=== PATIENT | female | born 1955 | race Asian ===

== ENCOUNTER 2018-05-25 19:08 | Emergency (ER) | payer OTHER, SELFPAY ==
[2018-05-25 19:13] VITALS: BP 158/91; PULSE 64; RESP 14; TEMP 36.2; O2SAT 100; BMI 22.4
--- NOTE | 2018-05-25 20:17 | DI.RAD.S_ITS ---
PROCEDURE: XR CHEST 2V INDICATIONS: chest pain / dizzy TECHNIQUE: 2 views of the chest were acquired. COMPARISON: None. FINDINGS: Surgical changes and devices: Clips are present overlying the neck. Lungs and pleura: Lungs are clear. No pleural effusions or pneumothorax. Mediastinum: Mediastinal contours are normal. Heart size is normal. Bones and chest wall: No suspicious bony abnormalities. Soft tissues appear unremarkable. IMPRESSION: No acute pulmonary process. Dictated by: Tamela Swift M.D. on 05/25/2018 at 20:38 Approved by: Tamela Swift M.D. on 05/25/2018 at 20:38
--- NOTE | 2018-05-25 20:27 | PC.NURSE ---
pt reports similar episode last year with diag of vertigo. Also c/o a month of intermittent substernal chest pain, denies cp today, denies pain/discomfort/dizziness or other sx at time of exam, neuro exam unremarkable, NSR on 12 lead, lungs clear/equal, no periph edema noted
[2018-05-25 20:31] LABS: Add Manual Diff / Slide Review NO; Basophils Absolute Auto 100 /uL (0-100); Basophils Percent Auto 0.8 % (0-2); Eosinophils Absolute Auto 0 /uL (0-450); Eosinophils Percent Auto 0.5 % (2-4); Hematocrit 43.9 % (36-46); Hemoglobin 14.6 g/dL (12.0-16.0); Lymphocytes Absolute Auto 1900 /uL (1100-4500); Lymphocytes Percent Auto 30.6 % (25-40); Mean Corpuscular HGB Conc 33.3 % (30-36); Mean Corpuscular Hemoglobin 30.1 PG (26-34); Mean Corpuscular Volume 90.2 fL (80-100); Monocytes Absolute Auto 300 /uL (0-900); Monocytes Percent Auto 4.7 % (3-14); Neutrophils Absolute Auto 4000 /uL (1500-7000); Neutrophils Percent Auto 63.4 % (50-75); Platelet Count 216 X10^3/uL (150-400); Red Blood Cell Count 4.87 X10^6/uL (4.0-5.2); Red Cell Distribution Width 13.6 % (11.6-14.8); White Blood Cell Count 6.3 X10^3/uL (4.5-11.0)
[2018-05-25] MEDS: ONDANSETRON 4 MG/2 ML INJ IV (20:34)
[2018-05-25] MEDS: MECLIZINE HCL 12.5 MG TABLET 25 MG PO (20:34)
[2018-05-25] MEDS: SODIUM CHLORIDE 0.9% 1,000 ML 150 ML IV (20:35)
[2018-05-25 20:42] LABS: BUN Creatinine Ratio 24.3 (6-22); Blood Urea Nitrogen 17 mg/dL (7-17); Calcium 9.3 mg/dL (8.4-10.2); Carbon Dioxide 24 mmol/L (22-32); Chloride 105 mmol/L (98-107); Estimated Glomerular Filt Rate > 60.0 mL/min (>60); Glucose 97 mg/dL (80-110); HEMOLYSIS 15 (0-50); Potassium 3.7 mmol/L (3.4-5.1); Sodium 140 mmol/L (137-145)
[2018-05-25 20:58] LABS: D Dimer < 200 ng/mL (<230); Troponin I < 0.012 ng/mL (0.01-0.034)
[2018-05-25 21:37] VITALS: BP 143/81; BP 152/90; BP 158/88; PULSE 52; PULSE 56
--- NOTE | 2018-05-25 21:43 | ED_ITS ---
HPI - Dizziness General Chief Complaint: Dizziness Stated Complaint: dizziness Time Seen by Provider: 05/25/18 19:34 Source: patient Mode of arrival: ambulatory History of Present Illness HPI Narrative: 62-year-old female, nonsmoker with history of hypothyroid presents with a chief complaint of an episode of dizziness earlier today. She states that it probably got worse when she moved her head but was mild at worst. She denies any recent illness including runny nose, nasal congestion, sneeze, cough or sore throat. She has had no fever or chills. She denies nausea , vomiting or diarrhea currently but was nauseated when her dizziness was intense earlier. She denies blurred vision or trouble with speech. She has no focal neurologic findings. She does state that she has had chest pain off and on for the past few months but not currently MD complaint: dizziness Timing: gradual onset Description: sense of movement and lightheadedness History of similar episodes: No History of trauma: No Severity: moderate Relieving factors: remaining still Exacerbating factors: movement Related Data Home Medications Medication Instructions Recorded Confirmed levothyroxine 88 mcg PO DAILY 05/25/18 05/25/18 Previous Rx's Medication Instructions Recorded meclizine 25 mg PO BID-TID PRN #14 tab 05/25/18 ondansetron 4 mg PO TID-QID PRN #10 tab 05/25/18 Allergies Allergy/AdvReac Type Severity Reaction Status Date / Time No Known Drug Allergies Allergy Verified 05/25/18 19:17 Review of Systems Constitutional Denies chills, Denies fever(s), Denies lethargy and Denies weakness Eyes Denies change in vision, Denies eye discharge, Denies irritation and Denies loss of vision ENT Ears, Nose, Mouth, and Throat: Denies change in voice, Denies neck pain and Denies sore throat Cardiovascular Denies chest pain, Denies irregular heart rhythm, Denies lightheadedness, Denies palpitations, Denies dyspnea, Denies dyspnea on exertion and Denies orthopnea Respiratory Denies cough, Denies dyspnea, Denies dyspnea on exertion and Denies wheezing Gastrointestinal Gastrointestinal: Denies abdominal pain, Denies change in bowel habits, Denies diarrhea, Denies nausea and Denies vomiting Genitourinary Denies hematuria, Denies flank pain, Denies urinary incontinence and Denies urinary urgency Musculoskeletal Denies neck pain Integumentary/Breasts Denies pruritus, Denies erythema, Denies rash and Denies wounds Neurologic Denies confusion, Denies loss of vision and Denies weakness Psychiatric Denies anxiety, Denies confusion, Denies depression, Denies homicidal ideation and Denies suicidal ideation Endocrine Denies palpitations Hematologic/Lymphatic Denies easy bruising Allergic/Immunologic Denies wheezing [facility] Social History Smoking Status: Current every day smoker Exam Narrative Exam Narrative: GENERAL: This is a well-nourished, well-developed patient, in mild distress. HEAD: Atraumatic. Normocephalic. No temporal or scalp tenderness. EYES: Pupils equal round and reactive. Extraocular motions intact. No scleral icterus. No injection or drainage. ENT: Nose without bleeding, purulent drainage or septal hematoma. Throat without erythema, tonsillar hypertrophy or exudate. Uvula midline. Airway patent. NECK: Trachea midline. No JVD or lymphadenopathy. Supple, nontender, no meningeal signs. CARDIOVASCULAR: Regular rate and rhythm without murmurs, gallops, or rubs. RESPIRATORY: Clear to auscultation. Breath sounds equal bilaterally. No wheezes , rales, or rhonchi. GASTROINTESTINAL: Abdomen soft, non-tender, nondistended. No hepato-splenomegaly , or palpable masses. No guarding. EXTREMITIES: No clubbing, cyanosis, or edema. No joint tenderness, effusion, or edema noted. BACK: Nontender without deformity or crepitance. No flank tenderness. NEURO: AOx3. SKIN: No rash or erythema. NIH Stroke Scale 1a. LOC: Patient is alert and keenly responsive (0) 1b. LOC Questions: Patient answers both LOC questions accurately (0) 1c. LOC Commands: Patient performs both tasks correctly (0) 2. Best Gaze: Normal (0) 3. Visual: No visual loss (0) 4. Facial palsy: Normal symmetrical movements (0) 5. Motor arm: No drift (0) 6. Motor leg: No drift (0) 7. Limb ataxia: Absent (0) 8. Sensory: Normal (0) 9. Best language: No aphasia; normal (0) 10. Dysarthria: Normal (0) 11. Extinction and inattention: No abnormality (0) NIHSS: 0 Initial Vital Signs Initial Vital Signs: Vital Signs Temperature 97.2 F L 05/25/18 19:13 Pulse Rate 64 05/25/18 19:13 Respiratory Rate 14 05/25/18 19:13 Blood Pressure 158/91 H 05/25/18 19:13 Pulse Oximetry 100 05/25/18 19:13 Course Orders Ordered: Discontinued Medications Sodium Chloride (Normal Saline 0.9%) 1,000 mls @ 150 mls/hr IV CONT ROGER Last Infusion: 05/25/18 21:54 Dose: 0 mls/hr Admin: 05/25/18 20:35 Dose: 150 mls/hr Meclizine HCl (Antivert) 25 mg PO NOW ONE Stop: 05/25/18 20:17 Last Admin: 05/25/18 20:34 Dose: 25 mg Ondansetron HCl (Zofran) 4 mg IV NOW ONE Stop: 05/25/18 20:17 Last Admin: 05/25/18 20:34 Dose: 4 mg Vital Signs - 8 hr 05/25/18 19:13 05/25/18 21:37 Temperature 97.2 F L Pulse Rate 64 Pulse Rate [Orthostatic Lying] 52 L Pulse Rate [Orthostatic Sitting] 56 L Pulse Rate [Orthostatic Standing] 56 L Respiratory Rate 14 Blood Pressure 158/91 H Blood Pressure [Orthostatic Lying] 143/81 H Blood Pressure [Orthostatic Sitting] 158/88 H Blood Pressure [Orthostatic Standing] 152/90 H Pulse Oximetry 100 MDM - Dizziness Lab Data Result diagrams: 05/25/18 20:25 05/25/18 20:25 Lab Results 05/25/18 05/25/18 05/25/18 Range/Units 20:25 20:25 20:25 WBC 6.3 (4.5-11.0) X10^3/uL RBC 4.87 (4.0-5.2) X10^6/uL Hgb 14.6 (12.0-16.0) g/dL Hct 43.9 (36-46) % MCV 90.2 (80-100) fL MCH 30.1 (26-34) PG MCHC 33.3 (30-36) % RDW 13.6 (11.6-14.8) % Plt Count 216 (150-400) X10^3/uL Neut % (Auto) 63.4 (50-75) % Lymph % (Auto) 30.6 (25-40) % [place] % (Auto) 4.7 (3-14) % Eos % (Auto) 0.5 L (2-4) % Baso % (Auto) 0.8 (0-2) % Neut # (Auto) 4000 (5565-2937) /uL Lymph # (Auto) 1900 (3958-5411) /uL [place] # (Auto) 300 (0-900) /uL Eos # (Auto) 0 (0-450) /uL Baso # (Auto) 100 (0-100) /uL D-Dimer < 200 (<230) ng/mL Sodium 140 (137-145) mmol/L Potassium 3.7 (3.4-5.1) mmol/L Chloride 105 (98-107) mmol/L Carbon Dioxide 24 (22-32) mmol/L BUN 17 (7-17) mg/dL Creatinine 0.70 (0.52-1.04) mg/dL Estimated GFR > 60.0 (>60) mL/min BUN/Creatinine Ratio 24.3 H (6-22) Glucose 97 (80-110) mg/dL Calcium 9.3 (8.4-10.2) mg/dL Troponin I < 0.012 (0.01-0.034) ng/mL Urine Dip Bedside Urine Glucose Negative Bedside Urine Bilirubin - Negative Bedside Urine Ketone - Negative Urine Specific [place] 1.010 Bedside Urine Occult Blood - Negative Bedside Urine pH 6.0 Bedside Urine Protein - Negative Bedside Urine Urobilinogen - Negative Bedside Urine Nitrite - Negative Bedside Urine Leukocytes - Negative Esterase ECG Data Attestation: I personally reviewed and interpreted this ECG as follows: Prior ECG tracings: not available for review Interpretation: EKG is normal sinus rhythm rate [ 70] and free of any signs of ischemia or ectopy. No ST segmental elevation or depression. No T wave inversions MDM Narrative Medical decision making narrative: Multiple etiologies for patient's symptoms considered including: [Stroke, peripheral etiology, benign paroxysmal positional vertigo Patient's symptoms improved or duration of stay with above-stated therapies. Findings and discharge diagnosis discussed with patient/family followed by verbalization of understanding Return precautions discussed with patient/family whom verbalize understanding. Discharge Plan Departure Patient Disposition: Home Clinical Impression: Dizziness Discharge Date/Time: 05/25/18 21:55 Interventions: ED Discharge Assessment Last Done: 05/25/18 21:53 Instructions: DI for Vertigo Activity Restrictions/Additional Instructions: *You have been diagnosed with [ vertigo ] *What to do: *Take medications as directed *Follow up with your primary care provider in 2-3 days, call for an appointment. Let them know you were seen in the Emergency Department and that we ask that you be seen in follow up *Return to ER if you should have any new, worsening or concerning symptoms Prescriptions: New meclizine 25 mg tablet 25 mg PO BID-TID PRN (Reason: dizziness) Qty: 14 RF: 0 ondansetron 4 mg tablet,disintegrating 4 mg PO TID-QID PRN (Reason: nausea and vomiting) Qty: 10 RF: 0 No Action levothyroxine 88 mcg Capsule 88 mcg PO DAILY RF: 0
--- NOTE | 2018-05-25 21:45 | PC.NURSE ---
Pt walked to restroom with a steady gait
[2018-05-25 21:53] VITALS: BP 152/90; PULSE 66; RESP 19; O2SAT 100
== END 2018-05-25 21:55 | disposition home or self-care (01) ==
PROVIDERS: Emergency Provider Emergency Medicine
DX: R42 Dizziness and giddiness (principal)
CPT/HCPCS: 36591; 71046; 80048; 81003; 84484; 85025; 85379; 93005; 96361; 96374; 99283; 99285; J2405

== ENCOUNTER 2019-05-18 19:30 | Emergency (ER) | payer OTHER, SELFPAY ==
[2019-05-18 19:37] VITALS: BP 151/99; PULSE 79; RESP 18; TEMP 36.7; O2SAT 99
[2019-05-18 21:59] VITALS: BP 153/92; PULSE 83; RESP 18; TEMP 37.3; O2SAT 100
[2019-05-18 22:18] LABS: Influenza A - CEPHEID Flu A NEGATIVE (NEGATIVE); Influenza B - CEPHEID Flu B NEGATIVE (NEGATIVE)
[2019-05-18] MEDS: ONDANSETRON 4 MG ODT SL (22:48)
[2019-05-18] MEDS: ACETAMINOPHEN 325 MG TABLET 975 MG PO (22:49)
[2019-05-19 01:05] VITALS: BP 136/79; PULSE 62; RESP 15; O2SAT 100
--- NOTE | 2019-05-19 01:37 | ED.URI ---
HPI - URI/Sore Throat General Chief Complaint: Upper Respiratory Symptoms Stated Complaint: THROAT IS DRY SINUS PAIN AND NECK LEGS FEEL WEAK Time Seen by Provider: 05/19/19 01:37 Source: patient Mode of arrival: Ambulatory Limitations: no limitations History of Present Illness HPI Narrative: 63-year-old woman with 3 days of upper respiratory symptoms including cough, sore throat, sinus fullness nasal congestion. She does not report shortness of breath, chest pain, rashes, fevers. She notes that she does ache all over and has had chills. No one else at home is ill at this time. Only additional medical history includes hypothyroidism. She has tried no medication to help alleviate current symptoms. Related Data Home Medications Medication Instructions Recorded Confirmed levothyroxine 88 mcg PO DAILY 05/25/18 05/18/19 Allergies Allergy/AdvReac Type Severity Reaction Status Date / Time No Known Drug Allergies Allergy Verified 05/25/18 19:17 Review of Systems Review of Systems Narrative: All systems reviewed and are unremarkable except as noted in HPI and below Patient History Social History Smoking Status: Current every day smoker Smoking Status: Current every day smoker alcohol intake frequency: 0-2 drinks per day Substance Use Type: does not use Exam Narrative Exam Narrative: General: Healthy appearing, in no acute distress. Able to give a complete and coherent history. Well-nourished well-developed HEENT: Moist mucous membranes, normal sclera with reactive pupils, mild nasal congestion, tympanic membranes normal bilaterally Neck: Mild bilateral anterior cervical adenopathy. No JVD, supple Respiratory: Lungs are clear to auscultation, no wheezing no rales no rhonchi. Full and symmetrical air movement Cardiac: Regular rate and rhythm no murmurs no bruits Abdomen: Soft nontender good bowel tones, no flank pain Skin: Warm and dry, no rashes Neurologic: Grossly neurologically intact with no obvious asymmetries or abnormalities Extremities: No trauma, well perfused Psych: Cooperative, appropriate insight and affect Initial Vital Signs Initial Vital Signs: Vital Signs Temperature 98.1 F 05/18/19 19:37 Pulse Rate 79 05/18/19 19:37 Respiratory Rate 18 05/18/19 19:37 Blood Pressure 151/99 H 05/18/19 19:37 Pulse Oximetry 99 05/18/19 19:37 Course Orders Ordered: ED Orders 05/18/19 21:45 Influenza A & B (PCR) Stat Discontinued Medications Acetaminophen (Tylenol) 975 mg PO NOW ONE Stop: 05/18/19 22:39 Last Admin: 05/18/19 22:49 Dose: 975 mg Documented by: OTIS Ondansetron HCl (Zofran Odt) 4 mg SL NOW ONE Stop: 05/18/19 22:39 Last Admin: 05/18/19 22:48 Dose: 4 mg Documented by: OTIS Vital Signs Vital signs: Vital Signs - 8 hr 05/18/19 21:59 05/19/19 01:05 Temperature 99.2 F Pulse Rate 83 62 Respiratory Rate 18 15 Blood Pressure [Right Arm] 153/92 H 136/79 Pulse Oximetry 100 100 MDM - URI/Sore Throat Medical Records Attestation: I reviewed the patient's medical records. Lab Data Labs: Lab Results 05/18/19 Range/Units 21:45 Influenza A (RT-PCR) Flu a negative (NEGATIVE) Influenza B (RT-PCR) Flu b negative (NEGATIVE) MDM Narrative Medical decision making narrative: Three days of upper respiratory symptoms. Negative influenza swab. No evidence of pneumonia, congestive heart failure, pulmonary embolism, bacterial infection. Supportive treatment, work note and explanation of reasons to return to the emergency department are all reviewed. At this point she is safe for home discharge Discharge Plan Departure Patient Disposition: Home Clinical Impression: Upper respiratory infection Qualifiers: URI type: unspecified viral URI Qualified Code(s): J06.9 - Acute upper respiratory infection, unspecified Discharge Date/Time: 05/19/19 01:59 Instructions: DI for Viral Upper Respiratory Infection -- Adult Activity Restrictions/Additional Instructions: Thank you for coming in today and for being so patient with the long wait. Your exam and history are all showing a viral upper respiratory infection with no signs of a bacterial component (not strep throat, an ear or sinus infection, no pneumonia). Your influenza specific test was negative today as well. You need some time, tylenol, and pseudophed to help with the congestion. You can get both tylenol and pseudophen over the counter but will need to ask the pharmacist for the pseudophed. If you fell that you are getting worse, higher temperatures, productive cough more pain or other symptoms, please feel free to return for further evaluation. Prescriptions: No Action levothyroxine 88 mcg Capsule 88 mcg PO DAILY RF: 0 Stand Alone Forms: Work Release Note, Work/School Release
== END 2019-05-19 01:59 | disposition home or self-care (01) ==
PROVIDERS: Emergency Provider Emergency Medicine
DX: J06.9 Acute upper respiratory infection, unspecified (principal)
CPT/HCPCS: 87502; 99282; 99284

== ENCOUNTER 2021-02-27 21:24 | Emergency (ER) | payer OTHER, SELFPAY ==
[2021-02-27] VITALS (7 sets, daily range): BP systolic 152–182; BP diastolic 87–89; PULSE 72–86; RESP 16–18; TEMP 36.2; O2SAT 96–99; BMI 23.6
[2021-02-27 22:17] LABS: Add Manual Diff / Slide Review NO; Basophils Absolute Auto 0 /uL (0-100); Basophils Percent Auto 0.5 % (0-2); Eosinophils Absolute Auto 0 /uL (0-450); Eosinophils Percent Auto 0.6 % (2-4); Hematocrit 39.5 % (36-46); Hemoglobin 13.5 g/dL (12.0-16.0); Lymphocytes Absolute Auto 2000 /uL (1100-4500); Lymphocytes Percent Auto 28.1 % (25-40); Mean Corpuscular HGB Conc 34.1 % (30-36); Mean Corpuscular Hemoglobin 30.7 PG (26-34); Mean Corpuscular Volume 89.9 fL (80-100); Monocytes Absolute Auto 200 /uL (0-900); Neutrophils Absolute Auto 4900 /uL (1500-7000); Neutrophils Percent Auto 67.8 % (50-75); Platelet Count 222 X10^3/uL (150-400); Red Cell Distribution Width 13.5 % (11.6-14.8); White Blood Cell Count 7.2 X10^3/uL (4.5-11.0)
[2021-02-27] MEDS: SODIUM CHLORIDE 0.9% 1,000 ML 150 ML IV (22:17)
[2021-02-27 22:19] LABS: BUN Creatinine Ratio 17.2 (6-22); Blood Urea Nitrogen 16 mg/dL (7-17); Calcium 9.1 mg/dL (8.4-10.2); Carbon Dioxide 23 mmol/L (22-32); Chloride 108 mmol/L (98-107); Estimated Glomerular Filt Rate > 60.0 mL/min (>60); Glucose 236 mg/dL (80-110); HEMOLYSIS 18 (0-50); Potassium 3.3 mmol/L (3.4-5.1); Sodium 141 mmol/L (137-145)
[2021-02-27 22:31] LABS: Troponin I < 0.012 ng/mL (0.01-0.034)
[2021-02-27 22:39] LABS: COVID19 -Nasal RAPID Negative (Negative)
--- NOTE | 2021-02-27 23:29 | ED_ITS ---
HPI - General Adult General Chief complaint: Shortness of Breath/Dyspnea Stated complaint: feeling faint Time Seen by Provider: 02/27/21 23:28 Source: family Mode of arrival: Ambulatory Limitations: language barrier History of Present Illness HPI narrative: 65-year-old woman with a history of hypothyroidism with episodes of weakness near-syncope and dizziness associated with mild tightness and shortness of breath through her chest. She had 1 of these episodes today while she was standing up and working. She did not complain of diaphoresis. The episodes last only minutes and are associated with palpitations. She was seen at [facility] about 3 weeks ago with similar symptoms with what sounds like a full stroke workup including MRI of the head CT scan of the head and all was unremarkable. She has followed up with her primary care physician in actually has a stress test scheduled for tomorrow afternoon after for cardiology referral follow-up. She denies any fevers, cough, chills, abdominal pain, vomiting, diarrhea, lower extremity edema, orthopnea or dyspnea. Related Data Home Medications Medication Instructions Recorded Confirmed levothyroxine 88 mcg capsule 88 mcg PO DAILY 05/25/18 05/18/19 Allergies Allergy/AdvReac Type Severity Reaction Status Date / Time No Known Drug Allergies Allergy Verified 05/25/18 19:17 Review of Systems Review of Systems Narrative: The remainder of review Patient History Social History Smoking Status: Current every day smoker Smoking Status: Current every day smoker alcohol intake frequency: 0-2 drinks per day Substance Use Type: does not use Exam Narrative Exam Narrative: General: Healthy appearing, in no acute distress. Able to give a complete and coherent history. Well-nourished well-developed HEENT: Moist mucous membranes, normal sclera with reactive pupils, Neck: No JVD, supple Respiratory: Lungs are clear to auscultation, no wheezing no rales no rhonchi. Full and symmetrical air movement Cardiac: Regular rate and rhythm no murmurs no bruits Abdomen: Soft, nontender, good bowel tones, no flank pain Skin: Warm and dry, no rashes Neurologic: Grossly neurologically intact with no obvious asymmetries or abnormalities Extremities: No trauma, well perfused Psych: Cooperative, appropriate insight and affect Initial Vital Signs Initial Vital Signs: Vital Signs Blood Pressure 182/89 H 02/27/21 21:29 Course Orders Ordered: ED Orders 02/27/21 21:33 COVID19 -Nasal swab/Pre-Proc Stat 02/27/21 21:50 Basic Metabolic Panel Stat Complete Blood Count AUTO DIFF Stat Troponin I Stat 02/27/21 23:59 Troponin I Stat Sodium Chloride (Normal Saline 0.9%) 1,000 mls @ 150 mls/hr IV CONT ROGER Last Admin: 02/27/21 22:17 Dose: 150 mls/hr Documented by: PAUL Vital Signs Vital signs: Vital Signs - 8 hr 02/27/21 21:29 02/27/21 21:30 02/27/21 21:36 Temperature 97.2 F L Pulse Rate 86 81 Respiratory Rate 18 Blood Pressure 182/89 H 152/87 H 158/87 H Pulse Oximetry 99 96 02/27/21 22:00 Temperature Pulse Rate 72 Respiratory Rate Blood Pressure Pulse Oximetry 98 Medical Decision Making Lab Data Result diagrams: 02/27/21 21:50 02/27/21 21:50 Labs: Lab Results 02/27/21 02/27/21 02/27/21 Range/Units 21:33 21:50 21:50 WBC 7.2 (4.5-11.0) X10^3/uL RBC 4.40 (4.0-5.2) X10^6/uL Hgb 13.5 (12.0-16.0) g/dL Hct 39.5 (36-46) % MCV 89.9 (80-100) fL MCH 30.7 (26-34) PG MCHC 34.1 (30-36) % RDW 13.5 (11.6-14.8) % Plt Count 222 (150-400) X10^3/uL Neut % (Auto) 67.8 (50-75) % Lymph % (Auto) 28.1 (25-40) % [place] % (Auto) 3.0 (3-14) % Eos % (Auto) 0.6 L (2-4) % Baso % (Auto) 0.5 (0-2) % Neut # (Auto) 4900 (0942-8497) /uL Lymph # (Auto) 2000 (3605-9224) /uL [place] # (Auto) 200 (0-900) /uL Eos # (Auto) 0 (0-450) /uL Baso # (Auto) 0 (0-100) /uL Sodium 141 (137-145) mmol/L Potassium 3.3 L (3.4-5.1) mmol/L Chloride 108 H (98-107) mmol/L Carbon Dioxide 23 (22-32) mmol/L BUN 16 (7-17) mg/dL Creatinine 0.93 (0.52-1.04) mg/dL Estimated GFR > 60.0 (>60) mL/min BUN/Creatinine Ratio 17.2 (6-22) Glucose 236 H (80-110) mg/dL Calcium 9.1 (8.4-10.2) mg/dL Troponin I < 0.012 (0.01-0.034) ng/mL SARS-CoV-2 (PCR) Negative (Negative) 02/27/21 Range/Units 23:59 WBC (4.5-11.0) X10^3/uL RBC (4.0-5.2) X10^6/uL Hgb (12.0-16.0) g/dL Hct (36-46) % MCV (80-100) fL MCH (26-34) PG MCHC (30-36) % RDW (11.6-14.8) % Plt Count (150-400) X10^3/uL Neut % (Auto) (50-75) % Lymph % (Auto) (25-40) % [place] % (Auto) (3-14) % Eos % (Auto) (2-4) % Baso % (Auto) (0-2) % Neut # (Auto) (0257-9153) /uL Lymph # (Auto) (5429-9205) /uL [place] # (Auto) (0-900) /uL Eos # (Auto) (0-450) /uL Baso # (Auto) (0-100) /uL Sodium (137-145) mmol/L Potassium (3.4-5.1) mmol/L Chloride (98-107) mmol/L Carbon Dioxide (22-32) mmol/L BUN (7-17) mg/dL Creatinine (0.52-1.04) mg/dL Estimated GFR (>60) mL/min BUN/Creatinine Ratio (6-22) Glucose (80-110) mg/dL Calcium (8.4-10.2) mg/dL Troponin I < 0.012 (0.01-0.034) ng/mL SARS-CoV-2 (PCR) (Negative) Imaging Data Chest x-ray: Radiologist's Impression: FINDINGS:? ? Surgical changes and devices: Clips are present overlying the neck. ? Lungs and pleura:? Lungs are clear.? No pleural effusions or pneumothorax.? ? Mediastinum:? Mediastinal contours are normal.? Heart size is normal.? ? Bones and chest wall:? No suspicious bony abnormalities.? Soft tissues appear unremarkable.? ? IMPRESSION:? No acute pulmonary process. ? ? ? Dictated by: Tamela Swift M.D. on 05/25/2018 at 20:38? ?? ECG Data Interpretation: Sinus rhythm at a rate of 71 Normal intervals, normal axis No acute ischemic changes MDM Narrative Medical decision making narrative: 65-year-old woman with recurrent brief episodes of palpitation and near syncope. She has had a full workup at [facility] about 3 weeks ago with neurologic etiologies centrally ruled out. She followed up with primary care physician was for referred to Cardiology has a stress test scheduled for tomorrow and I assume that further outpatient rhythm testing will be done as well. There is no evidence of arrhythmias while she has been monitored here in the emergency department. No acute coronary syndrome, no benign positional vertigo, orthostatic hypotension or signs of symptoms of stroke or TIA. She is safe for home discharge and I have encouraged her to co ntinue with outpatient workup as already initiated Discharge Plan Departure Patient Disposition: Home Clinical Impression: Heart palpitations, Near syncope Instructions: DI for Arrhythmias, DI for Syncope in Adults (Fainting) Activity Restrictions/Additional Instructions: Thank you for coming in today.?? There is no evidence of COVID or other infectious disease.? No signs of congestive heart failure, heart attack or heart attack like syndromes or significant dehydration. Your blood work was reassuring today including a heart test(troponin) initially and repeated 2 hours afterward.? I think it is safe for you to go home and I would definitely recommend that you keep your appointment tomorrow for the stress test that your site lead as recommended. Please make sure you keep your cardiology follow-up appointments. If you find your having new or worsening symptoms, please feel free to return to the ER Prescriptions: No Action levothyroxine 88 mcg Capsule 88 mcg PO DAILY RF: 0
[2021-02-28] VITALS: PULSE 71; RESP 20; O2SAT 98
[2021-02-28 00:30] VITALS: PULSE 64; RESP 26; O2SAT 97
[2021-02-28 00:56] LABS: Troponin I < 0.012 ng/mL (0.01-0.034)
[2021-02-28 01:03] VITALS: PULSE 66; O2SAT 96
[2021-02-28 01:11] VITALS: BP 131/73; PULSE 61; RESP 16; O2SAT 99
[2021-02-28 01:30] VITALS: BP 155/83; PULSE 65; RESP 21; O2SAT 98
== END 2021-02-28 02:01 | disposition home or self-care (01) ==
PROVIDERS: Emergency Provider Emergency Medicine
DX: R00.2 Palpitations (principal); R55 Syncope and collapse; R42 Dizziness and giddiness; R06.02 Shortness of breath; Z20.822 Contact with and (suspected) exposure to COVID-19
CPT/HCPCS: 36415; 80048; 84484; 85025; 87635; 93005; 99284; C9803